=== PATIENT | female | born 1975 | race Two or more races ===

== ENCOUNTER 2020-03-14 02:08 | Emergency (ER) | payer SELFPAY ==
[~2020-03-14] VITALS: Ht 162.6 cm; Wt 89.8 kg
[2020-03-14 02:17] VITALS: BP 153/96
[2020-03-14] MEDS ORDERED: LORAZEPAM 1 MG TABLET ONE (02:28)
[2020-03-14] MEDS ORDERED: LORAZEPAM 1 MG TABLET PO ONE (02:30)
== END 2020-03-14 02:37 | disposition home or self-care (01) ==
LOC: ER 02:11
DX: F41.9 Anxiety disorder, unspecified (principal); I10 Essential (primary) hypertension; R42 Dizziness and giddiness
CPT/HCPCS: 82962-TC